=== PATIENT | male | born 1985 | race Caucasian/White ===

== ENCOUNTER 2021-09-30 12:37 | Observation (INO) | payer MEDICAID, SELFPAY ==
[2021-09-30 12:38] VITALS: BP 153/113; PULSE 103; RESP 18; TEMP 36; O2SAT 96; BMI 23.0
--- NOTE | 2021-09-30 13:11 | EX.ED.SAOD ---
HPI History of Present Illness Chief Complaint: ETOH Intox Detail of Chief Complaint: Requesting detox from alcohol and Suboxone Informant: patient Narrative Narrative: Patient is the urgency department requesting detox from alcohol and Suboxone. Patient is from the [facility] but I heard about our detox program. Patient last had a drink prior to arrival in the emergency department. He drinks 14% alcohol drinks that are the equivalent of 3-4 beers and he drinks about 3-4 those a day. Patient also takes Suboxone but is and has not had any for the last 3 days. Patient is scheduled to have 30 days of residential time and wants to detox before he goes to residential. Patient admits occasional marijuana use. Patient states he has not felt well because he has been without his Suboxone for the last 3 days. PFSH PFSH Allergy/AdvReac Type Severity Reaction Status Date / Time amoxicillin AdvReac Hives Verified 09/30/21 12:40 erythromycin base AdvReac Hives Verified 09/30/21 12:40 ROS ROS ED Review of Systems ROS Unobtainable: other Constitutional Constitutional ED: Reports lethargy; Denies chills, fever(s), sweats or weight loss Eyes Eyes: Denies blurry vision, change in vision or diplopia ENT ENT ED: Denies rhinorrhea or sore throat Cardiovascular Cardiovascular: Reports chest pain and racing heartbeat; Denies orthopnea Respiratory/Chest Respiratory/Chest: Reports dyspnea and dyspnea on exertion; Denies cough, orthopnea or sputum Gastrointestinal Gastrointestinal: Reports nausea; Denies abdominal pain, diarrhea or vomiting Genitourinary Genitourinary ED: Denies dysuria, hematuria or urinary frequency Musculoskeletal Musculoskeletal: Reports myalgias; Denies arthralgias, back pain or neck pain Integumentary Denies abscess, Abrasions or rash Neurologic Neurologic: Denies headache(s) or weakness Psychiatric Psychiatric: Denies anxiety, depression or suicidal thoughts Endocrine Endocrinology: Denies polydipsia, polyphagia or polyuria Hematologic/Lymphatic Hematologic/Lymphatic: Denies easy bleeding, easy bruising or lymphadenopathy Allergic/Immunologic Allergic/Immunologic ED: Denies mouth swelling, tongue swelling or urticaria EXAM Physical Exam Const Vital Signs: 09/30/21 12:38 Temperature 96.8 F L Temperature Source Temporal Pulse Rate 103 H Respiratory Rate 18 Blood Pressure 153/113 H Blood Pressure Mean 126 Pulse Ox 96 Oxygen Delivery Method Room Air Positive well nourished and well developed General Appearance ED: well developed and NAD HEENT Reports TM's clear and moist mucous membranes normocephalic and atraumatic; Negative for trauma or tenderness Tympanic Membrane ED: Yes TM's clear Eyes PERRL and EOMs intact bilaterally General Eye ED: Negative for pale conjunctiva or scleral icterus Neck no lymphadenopathy, supple and no JVD General: Negative for tenderness Chest Wall inspection of chest normal and palpation of chest normal Chest: Negative for tenderness Resp normal respiratory effort and clear to auscultation bilaterally Effort and Inspection: Negative for respiratory distress or pain with movement Auscultation: Negative for rhonchi, wheezes or diminished lung sounds Cardio regular rate, regular rhythm, S1 normal heart sound, S2 normal heart sound and no murmurs Peripheral Pulses: pulses 2+ throughout GI normal to inspection, nondistended, normoactive bowel sounds, soft to palpation, non-tender, non-distended and no masses Back/Spine no CVA tenderness and no thoracic nor lumbar tenderness Extremity normal to inspection General Extremety ED: Negative for edema General Extremity: Negative for edema Neuro oriented x3, CN's II-XII intact bilaterally, no sensory deficits noted and gait normal Sensorium / Orientation: awake, alert, oriented to person, oriented to place and oriented to time Motor Exam: strength 5/5 throughout and strength abnormal Psych mental status grossly normal Skin no rashes or lesions noted and no wounds MDM MDM MDM Narrative Medical decision making narrative: IV line established and lab work-up was ordered. Case discussed with hospitalist will evaluate patient for admission for alcohol intoxication and request for detox. Opioid withdrawal. Discharge Plan Triage Chief Complaint: ETOH Intox ED Provider: Jorge Preciado Dx/Rx/DC Orders Clinical Impression: Alcohol intoxication, Admitted to alcohol detoxification center, Acute opioid withdrawal Disposition Disposition: Acute Care Hospital [facility]
--- NOTE | 2021-09-30 13:23 | CM.ED ---
Addendum entered by Meredith Hernandez 09/30/21 13:51: SW went back to patient's room to follow up. SW reviewed the [facility] program rules which include no phone, no visitors and items locked. Patient verbalized understanding and agreement. Patient is in agreement with being admitted to [facility] program. LUI called [facility] Detox Counselor and advised of patient's admission for detox. Meredith COX Original Note: LUI Note Referral Source: psychology internregional facilities specialist Reason: Detox Patient said that he is at the hospital as he is detoxing from suboxone and alcohol. Patient said that he has been drinking 12 pack a day and liquor here and there. Patient last drank 1/4th of a loco before he came to the ED as I hadn't had suboxone for 3 days. Patient said that he is from [place] and came to the area to go hiking. Patient said that he is prescribed suboxone from Emperatriz England who is my family doctor through [facility]. Patient said that he ran out of suboxone as I was supposed to turn myself in but I told her I wanted to do detox.. and I heard good things about this place. At this time MD came to speak with patient. LUI will follow up. Meredith COX
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
[2021-09-30] MEDS: 0.9% Normal Saline 1,000 ML 150 ML IV (13:44)
[2021-09-30 13:45] VITALS: BP 147/95; PULSE 65; RESP 16; TEMP 36.8; O2SAT 96
[2021-09-30 13:47] VITALS: BP 147/95; PULSE 69; RESP 16; TEMP 36.8; O2SAT 95
[2021-09-30 13:47] LABS: Absolute Lymphocyte Count 1.22 X10^3/uL (0.83-4.51); Absolute Neutrophil Count 2.4 X10^3/uL (2.0-7.7); Basophil# 0.08 X10^3/uL; Basophil% 1.9 % (0-1); Eosinophil# 0.11 X10^3/uL; Eosinophils% 2.7 % (0-5); Hemoglobin 13.8 g/dL (13.0-16.5); Lymphocyte # 1.22 X10^3/ul (0.83-4.51); Lymphocyte % 29.5 % (19-41); Mean Corp Hgb Conc 35.4 g/dL (32-36); Mean Corpuscular Hgb 32.6 pg (27.0-32.0); Mean Corpuscular Volume 92.2 fL (80-94); Mean Platelet Vol. 9.2 fl (6.2-12.0); Monocyte# 0.32 X10^3/uL; Monocyte% 7.7 % (0-10); NRBC Flagged by Analyzer 0 % (0-5); Neutrophil # 2.39 X10^3/uL (2.7-7.7); Platelet Count 118 K/mm3 (150-450); RBC Distribution Width CV 13.1 % (11.6-14.6); RBC Distribution Width SD 44.1 fl (35.1-43.9); Red Blood Count 4.23 M/mm3 (4.6-6.2); White Blood Count 4.1 K/mm3 (4.4-11.0)
[2021-09-30 14:02] LABS: ALB/GLOB Ratio 0.9 RATIO (0.9-2.4); AST(SGOT) 179 U/L (15-37); Alanine Aminotransfer ALT/SGPT 126 U/L (16-61); Albumin, Serum 3.6 g/dL (3.2-5.0); Alkaline Phosphatase 101 U/L (45-117); Anion Gap 7 (5-15); BUN 6 mg/dL (7-18); BUN/Creat Ratio 8.4 RATIO (10-20); Calcium,Total 8.7 mg/dL (8.5-10.1); Chloride 107 mmol/L (98-107); Creatinine, Serum 0.72 mg/dL (0.70-1.30); EST Glomerular Filtration Rate 134 mL/min (>60); Est Glom Filt Rate - Afr Amer 162 mL/min (>60); Estimated Creatinine Clearance 154.48 ml/min; Globulin 4.2 g/dL (2.2-4.2); Glucose 104 mg/dL (74-106); Potassium 3.1 mmol/L (3.5-5.1); Protein, Total 7.8 g/dL (6.4-8.2); Sodium Level 143 mmol/L (136-145)
[2021-09-30 14:03] LABS: Amphetamine Urine VISTA NEGATIVE (<1000 ng/mL); Barbiturate Urine VISTA NEGATIVE (< 200 ng/mL); Benzodiazepine Urine VISTA NEGATIVE (< 200 ng/mL); Cocaine Urine VISTA NEGATIVE (< 300 ng/mL); Ecstacy Urine VISTA NEGATIVE (< 500 ng/mL); Methadone Urine VISTA NEGATIVE (< 300 ng/mL); PCP Urine VISTA NEGATIVE (< 25 ng/mL); THC Urine VISTA POSITIVE (< 50 ng/mL); Vista UDS pH Range 8
[2021-09-30 15:50] VITALS: BMI 22.5
[2021-09-30 16:00] VITALS: BP 128/90; PULSE 66; RESP 18; TEMP 36.6; O2SAT 94
[2021-09-30] MEDS: Buprenorphine HCl 2 MG TAB.SUBL SL (16:32)
[2021-09-30] MEDS: Potassium Chloride Oral Tablet 20 MEQ 40 MEQ PO (17:41)
[2021-09-30] MEDS: Gabapentin 300 MG Capsule PO (17:44)
[2021-09-30] MEDS: Acetaminophen 325 MG Tablet 650 MG PO (17:44)
[2021-09-30 17:55] VITALS: O2SAT 96
[2021-09-30 20:00] VITALS: BP 136/91; PULSE 54; RESP 20; TEMP 36.8; O2SAT 98
[2021-09-30] MEDS: traZODone 100 MG Tablet PO (20:22)
[2021-09-30] MEDS: cloNIDine HCl 0.1 MG Tablet PO (20:22)
[2021-10-01] VITALS (8 sets, daily range): BP systolic 131–164; BP diastolic 76–106; PULSE 43–61; RESP 18–20; TEMP 36.1–36.8; O2SAT 95–99
[2021-10-01] MEDS: Acetaminophen 325 MG Tablet 650 MG PO ×2 (00:10→14:22)
[2021-10-01] MEDS: Buprenorphine HCl 2 MG TAB.SUBL SL ×4 (00:11→23:17)
[2021-10-01] MEDS: Gabapentin 300 MG Capsule PO ×2 (01:51→14:21)
[2021-10-01] MEDS: Ondansetron 8 MG Tablet PO (01:51)
[2021-10-01] MEDS: LORazepam 1 MG Tablet 2 MG PO ×2 (05:34→20:17)
[2021-10-01 05:55] LABS: Absolute Lymphocyte Count 1.16 X10^3/uL (0.83-4.51); Absolute Neutrophil Count 2.7 X10^3/uL (2.0-7.7); Basophil# 0.04 X10^3/uL; Basophil% 0.9 % (0-1); Eosinophil# 0.09 X10^3/uL; Eosinophils% 2.1 % (0-5); Hemoglobin 14.1 g/dL (13.0-16.5); Lymphocyte # 1.16 X10^3/ul (0.83-4.51); Lymphocyte % 26.7 % (19-41); Mean Corp Hgb Conc 35.3 g/dL (32-36); Mean Corpuscular Hgb 33.2 pg (27.0-32.0); Mean Corpuscular Volume 94.1 fL (80-94); Mean Platelet Vol. 9.3 fl (6.2-12.0); Monocyte# 0.38 X10^3/uL; Monocyte% 8.7 % (0-10); NRBC Flagged by Analyzer 0 % (0-5); Neutrophil # 2.67 X10^3/uL (2.7-7.7); Neutrophil % 61.4 % (47-70); Platelet Count 116 K/mm3 (150-450); RBC Distribution Width CV 12.9 % (11.6-14.6); RBC Distribution Width SD 44.4 fl (35.1-43.9); Red Blood Count 4.25 M/mm3 (4.6-6.2); White Blood Count 4.4 K/mm3 (4.4-11.0)
[2021-10-01 06:27] LABS: AST(SGOT) 162 U/L (15-37); Alanine Aminotransfer ALT/SGPT 122 U/L (16-61); Albumin, Serum 3.5 g/dL (3.2-5.0); Alkaline Phosphatase 96 U/L (45-117); Bilirubin, Direct 0.14 mg/dL (0.00-0.30); Globulin 4.2 g/dL (2.2-4.2); Protein, Total 7.7 g/dL (6.4-8.2)
[2021-10-01] MEDS: Folic Acid 1 MG Tablet PO (08:53)
[2021-10-01] MEDS: Dicyclomine 10 MG Capsule 20 MG PO (08:53)
[2021-10-01] MEDS: Thiamine Hydrochloride 100 MG Tablet PO (08:53)
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
[2021-10-01] MEDS: Phenobarbital 32.4 MG Tablet 97.2 MG PO ×2 (20:39→23:16)
[2021-10-01] MEDS: 0.9% Saline Lock 10 ML Syringe IV (22:00)
[2021-10-01] MEDS: traZODone 100 MG Tablet PO (23:17)
[2021-10-02 05:01] VITALS: BP 153/95; PULSE 68; RESP 16; TEMP 36.4; O2SAT 98
[2021-10-02] MEDS: Phenobarbital 32.4 MG Tablet 97.2 MG PO ×3 (05:05→11:21)
[2021-10-02] MEDS: hydrOXYzine PAM 25 MG Capsule 50 MG PO (05:08)
[2021-10-02] MEDS: Ondansetron 8 MG Tablet PO (05:08)
[2021-10-02 07:37] VITALS: BP 139/86; PULSE 60; RESP 16; TEMP 37; O2SAT 96
[2021-10-02] MEDS: Buprenorphine HCl 2 MG TAB.SUBL SL (07:47)
[2021-10-02] MEDS: Thiamine Hydrochloride 100 MG Tablet PO (07:47)
[2021-10-02] MEDS: Folic Acid 1 MG Tablet PO (07:47)
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
[2021-10-02] MEDS: LORazepam 1 MG Tablet 2 MG PO (11:14)
--- NOTE | 2021-10-02 11:40 | ADDICTION ---
This policy writer typist met with PT to conduct ASAM, MSE, AUDIT, DUDIT assessments and to plan for d/c. PT A+Ox4 and participated actively. All assessments completed and placed in PT's chart. PT plans to f/u with follow-up treatment services, however he has committed to his [facility] sentence prior to treatment. This worker offered resources based on his listed wants and needs. PT did not indicate a need for transportation post d/c from [facility].
--- NOTE | 2021-10-02 13:10 | NURSING ---
Pt became very anxious and appeared to want to leave.
--- NOTE | 2021-10-02 13:15 | NURSING ---
Pt appeared very anxious and entertained thoughts of leaving AMA. Ativan was given along with nicoderm gum. Pt decided to leave AMA to spend time with his kids @ 1325. Pt requested a phone and called for a ride after signing AMA papers.
== END 2021-10-02 13:40 | disposition left against medical advice (07) | DRG 770 ==
LOC: ED 13:40 → PCU 14:07
PROVIDERS: Admitting Provider Internal Medicine; Emergency Provider Emergency Medicine; Visit Provider Internal Medicine
DX: F11.23 Opioid dependence with withdrawal (principal); F10.239 Alcohol dependence with withdrawal, unspecified; F10.229 Alcohol dependence with intoxication, unspecified; D69.6 Thrombocytopenia, unspecified; B18.1 Chronic viral hepatitis B without delta-agent; B18.2 Chronic viral hepatitis C; K70.10 Alcoholic hepatitis without ascites; K76.9 Liver disease, unspecified; F12.90 Cannabis use, unspecified, uncomplicated; F17.210 Nicotine dependence, cigarettes, uncomplicated; S22.42XD Multiple fractures of ribs, left side, subsequent encounter for fracture with routine healing; Y90.9 Presence of alcohol in blood, level not specified
CPT/HCPCS: 36415; 80053; 80076; 80307; 82077; 85025; 96360; 96361; 99218; 99251; 99284; 99406; J7030; A4216; G0378; G0463